=== PATIENT | male | born 1980 | race Caucasian/White ===

== ENCOUNTER 2019-11-28 12:18 | Emergency (ER) | payer OTHER, SELFPAY ==
--- NOTE | 2019-11-28 12:37 | XR_ITS ---
EXAMINATION: XR KNEE, RIGHT XR ANKLE, LEFT XR FOOT, LEFT CLINICAL INFORMATION: Status post fall. COMPARISON: None TECHNIQUE: Four views right knee. Two views left ankle. Three views left foot. FINDINGS: RIGHT KNEE: There is maintained tricompartment joint space. No periarticular spurring, loose bodies, or joint effusion seen. No bony erosive changes. Incidental finding of expansile lesion proximal tibia involving the cortex and the marrow. The soft tissues are unremarkable. LEFT ANKLE: There is mild lateral malleolar soft tissue swelling. No visible acute fracture, dislocation, or lytic process seen. The ankle mortise and subtalar joints are normal. LEFT FOOT: There is no visible acute fracture, dislocation, or subluxation in the left foot. The ankle mortise and subtalar joints are normal. The soft tissues are normal. XR/XR knee RT 4V IMPRESSION: 1. Minimal lateral malleolar soft tissue swelling. No visible acute fracture, dislocation left ankle and left foot. 2. Unremarkable right knee exam.
--- NOTE | 2019-11-28 12:37 | XR_ITS ---
EXAMINATION: XR KNEE, RIGHT XR ANKLE, LEFT XR FOOT, LEFT CLINICAL INFORMATION: Status post fall. COMPARISON: None TECHNIQUE: Four views right knee. Two views left ankle. Three views left foot. FINDINGS: RIGHT KNEE: There is maintained tricompartment joint space. No periarticular spurring, loose bodies, or joint effusion seen. No bony erosive changes. Incidental finding of expansile lesion proximal tibia involving the cortex and the marrow. The soft tissues are unremarkable. LEFT ANKLE: There is mild lateral malleolar soft tissue swelling. No visible acute fracture, dislocation, or lytic process seen. The ankle mortise and subtalar joints are normal. LEFT FOOT: There is no visible acute fracture, dislocation, or subluxation in the left foot. The ankle mortise and subtalar joints are normal. The soft tissues are normal. XR/XR ankle LT min 3V IMPRESSION: 1. Minimal lateral malleolar soft tissue swelling. No visible acute fracture, dislocation left ankle and left foot. 2. Unremarkable right knee exam.
--- NOTE | 2019-11-28 12:37 | XR_ITS ---
EXAMINATION: XR KNEE, RIGHT XR ANKLE, LEFT XR FOOT, LEFT CLINICAL INFORMATION: Status post fall. COMPARISON: None TECHNIQUE: Four views right knee. Two views left ankle. Three views left foot. FINDINGS: RIGHT KNEE: There is maintained tricompartment joint space. No periarticular spurring, loose bodies, or joint effusion seen. No bony erosive changes. Incidental finding of expansile lesion proximal tibia involving the cortex and the marrow. The soft tissues are unremarkable. LEFT ANKLE: There is mild lateral malleolar soft tissue swelling. No visible acute fracture, dislocation, or lytic process seen. The ankle mortise and subtalar joints are normal. LEFT FOOT: There is no visible acute fracture, dislocation, or subluxation in the left foot. The ankle mortise and subtalar joints are normal. The soft tissues are normal. XR/XR foot LT min 3V IMPRESSION: 1. Minimal lateral malleolar soft tissue swelling. No visible acute fracture, dislocation left ankle and left foot. 2. Unremarkable right knee exam.
[2019-11-28 12:49] VITALS: BP 120/62; PULSE 89; RESP 17; TEMP 36.7; O2SAT 99; BMI 21.6
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
[2019-11-28] MEDS: oxyCODONE HCl Immed Release 5 MG TABLET PO (14:52)
[2019-11-28 15:05] VITALS: BP 125/87; PULSE 65; RESP 16; TEMP 36.7; O2SAT 100
== END 2019-11-28 16:35 | disposition home or self-care (01) ==
PROVIDERS: Emergency Provider Emergency Medicine
DX: S80.01XA Contusion of right knee, initial encounter (principal); S80.211A Abrasion, right knee, initial encounter; M25.561 Pain in right knee; V19.9XXA Pedal cyclist (driver) (passenger) injured in unspecified traffic accident, initial encounter; Y93.55 Activity, bike riding; Y92.410 Unspecified street and highway as the place of occurrence of the external cause; Z23 Encounter for immunization
CPT/HCPCS: 73564; 73610; 73630; 90471; 90715; 99284

== ENCOUNTER 2022-11-10 10:27 | Outpatient (REF) | payer MEDICAID, SELFPAY ==
[2022-11-10 12:21] LABS: Alanine Aminotransferase 62 U/L (0-40); Albumin Level 3.7 g/dL (3.5-5.0); Alkaline Phosphatase 91 U/L (39-117); Aspartate Amino Transferase 46 U/L (5-37); Bilirubin Direct 0.1 mg/dL (0.0-0.5); Bilirubin Total 0.5 mg/dL (0.0-1.0); Total Protein 8.5 g/dL (6.5-8.0)
[2022-11-11 10:42] LABS: Syphilis Screen Nonreactive (Nonreactive)
[2022-11-11 10:49] LABS: HBS Num1 3.53 mIU/mL (0-7.99); HBc Num1 0.37 S/CO (0.00-0.79); HIV AB/AG Nonreactive (Nonreactive); HIV Num 1 0.06 S/CO (0.00-0.99); Hepatitis B Core Antibody Nonreactive (Nonreactive); ~HepC Num1 16.57 S/CO (0.00-0.79); ~Hepatitis B Surface Antibody NONREACTIVE (Nonreactive); ~Hepatitis C Antibody Reactive (Nonreactive)
[2022-11-12 12:03] LABS: Hepatitis B Viral DNA Qn - cp NOT DETECTED Log IU/mL (NOT DETECTED); Hepatitis B Viral DNA Qn-IU/mL NOT DETECTED (NOT DETECTED)
== END 2022-11-10 10:28 | disposition home or self-care (01) ==
LOC: HO.HHCL 10:27
PROVIDERS: Visit Provider Family Medicine
DX: Z11.4 Encounter for screening for human immunodeficiency virus [HIV] (principal); F11.20 Opioid dependence, uncomplicated
CPT/HCPCS: 36415; 80076; 86704; 86706; 86780; 86803; 87389; 87517; 87522

== ENCOUNTER 2024-11-29 12:46 | Emergency (ER) | payer SELFPAY ==
[2024-11-29] VITALS (8 sets, daily range): BP systolic 121–166; BP diastolic 65–96; PULSE 57–75; RESP 15–18; TEMP 36.3–36.4; O2SAT 98–99; BMI 23.3
--- NOTE | ~2024-11-29 | CT_ITS ---
EXAMINATION: CT ANGIOGRAM HEAD AND NECK CLINICAL INFORMATION: Subarachnoid hemorrhage, evaluate for aneurysm. COMPARISON: None available. TECHNIQUE: Test bolus sequences and head and neck intravenous bolus administration 70 mL of Omnipaque 350. Helical imaging was performed in the axial plane from the aortic arch to the skull vertex. The data was processed at the public health technologist's workstation for generation of MIP sequences. Angled MIPs and volume rendered reformatted images were also generated at an offline 3D workstation. Stenoses are assessed in accordance with NASCET criteria unless otherwise indicated. This CT examination was performed using dose optimization techniques as appropriate, variously including the following: *Automated exposure control *Adjustment of mA and/or kV according to patient size (this includes techniques or standardized protocols for targeted exams where dose is matched to indication/reason for exam; i.e. extremities or head) *Use of iterative reconstruction technique FINDINGS: NECK CTA: -AORTIC ARCH: Normal in caliber. No significant atheromatous disease. Three-vessel branching pattern. -GREAT VESSEL ORIGINS: Widely patent. No stenosis. -RIGHT COMMON CAROTID ARTERY: Normal in course and caliber to the level of the bifurcation. -CERVICAL RIGHT INTERNAL CAROTID ARTERY: Normal opacification without focal stenosis or occlusion. -LEFT COMMON CAROTID ARTERY: Normal in course and caliber to the level of the bifurcation. -CERVICAL LEFT INTERNAL CAROTID ARTERY: Normal opacification without focal stenosis or occlusion. -CERVICAL RIGHT VERTEBRAL ARTERY: Nondominant. Normal in origin, course and caliber into the skull base. -CERVICAL LEFT VERTEBRAL ARTERY: Dominant. Normal in origin, course and caliber into the skull base. OTHER, SOFT TISSUES: -No lymphadenopathy or mass. No abnormal fluid collection or soft tissue swelling. -Left thyroid lobe is absent. The right thyroid and isthmus appear normal. -Imaged superior mediastinal structures normal. -Imaged lung apices demonstrate centrilobular and paraseptal emphysema. There are otherwise grossly clear. -There are mild to moderate degenerative changes throughout the cervical spine. No suspicious bone lesions. CTA OF THE BRAIN: -INTRACRANIAL INTERNAL CAROTID ARTERIES: The left is normal in course and caliber without evidence of aneurysm. 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 -RIGHT ANTERIOR CEREBRAL ARTERY: Normal A1 segment. Normal arborization of the distal segments. -LEFT ANTERIOR CEREBRAL ARTERY: Normal A1 segment. Normal arborization of the distal segments. -ANTERIOR COMMUNICATING ARTERY: Normal. -RIGHT MIDDLE CEREBRAL ARTERY: Normal M1 segment of the MCA without focal stenosis or occlusion. Arising laterally and slightly anteriorly from the bifurcation, there is a 7 x 3 x 3 mm saccular aneurysm (series 6, image 311; series 12, image 103; series 8, image 95). Normal arborization of the distal segments. -LEFT MIDDLE CEREBRAL ARTERY: Normal M1 segment of the MCA without focal stenosis or occlusion. No aneurysm. Normal arborization of the distal segments. -RIGHT VERTEBRAL ARTERY V4: Normal in course and caliber. There is an AICA/PICA. -LEFT VERTEBRAL ARTERY V4: Normal in course and caliber. There is a normal PICA branch. -BASILAR ARTERY: Normal without focal stenosis or occlusion. Normal appearance of the proximal superior cerebellar arteries. Normal basilar tip. -RIGHT POSTERIOR CEREBRAL ARTERY: Normal P1 segment. Normal opacification of the distal BILINGUAL PATIENT SUPPORT CASEWORKER segments. -LEFT POSTERIOR CEREBRAL ARTERY: Normal P1 segment. Normal opacification of the distal BILINGUAL PATIENT SUPPORT CASEWORKER segments. -POSTERIOR COMMUNICATING ARTERIES: Normal opacification of the superior sagittal, straight, transverse, and sigmoid sinuses. No venous thrombosis. Diffuse subarachnoid hemorrhage again noted. CT/CT angio head neck IMPRESSION: CTA NECK: 1. No evidence of significant stenosis, occlusion, aneurysm, or dissection of the major cervical arterial vasculature. 2. Paraseptal and centrilobular emphysema in the imaged lung apices. CTA HEAD: 1. 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 This is likely the source of the subarachnoid hemorrhage. 2. There is a 2 x 2 millimeter saccular aneurysm arising inferomedially from the ophthalmic segment of the right ICA. 3. There is no additional aneurysm or AVM identified. 4. Diffuse subarachnoid hemorrhage again noted. This is better demonstrated on the noncontrast head CT performed immediately prior to this exam. Electronically signed by: Emil Do MD 11/29/2024 02:28 PM EDT
--- NOTE | ~2024-11-29 | CT_ITS ---
EXAMINATION: CT HEAD WITHOUT IV CONTRAST HISTORY: severe headache. TECHNIQUE: Unenhanced helical CT of the head was performed per standard departmental protocol. Coronal and sagittal reformats of the head were also evaluated. One or more of the following techniques was used for dose reduction: Automated exposure control, adjustment of the mA and/or kV according to patient size, use of iterative reconstruction technique. DLP: 623 mGy-cm COMPARISON: There are no prior studies available for comparison. FINDINGS: BRAIN: There is diffuse subarachnoid hemorrhage bilaterally, although greater on the right. Brown/white differentiation is normal. There is prominence of the temporal horns of the lateral ventricles. There is no significant midline shift.. SINUSES: The visualized paranasal sinuses are clear. The mastoid air cells and middle ear cavities are well pneumatized. ORBITS: There is disconjugate gaze. The globes are intact. BONES/SOFT TISSUES: The extracranial soft tissues are unremarkable. The calvarium is intact. No suspicious lytic or sclerotic lesions. CT/CT head/brain wo IV con IMPRESSION: Diffuse subarachnoid hemorrhage, greater on the right. Prominence of the temporal horns of the lateral ventricles. Findings were discussed with Dr. Alvarez in the emergency room on 11/29/2024 at 1:57 PM. Electronically signed by: Kenji Caceres MD 11/29/2024 02:03 PM EDT
[2024-11-29] MEDS: iohexoL 350 MG/ML 100 ML INFUS..BTL IV (13:57)
--- NOTE | 2024-11-29 13:57 | ED.HA ---
HPI - Headache General Chief Complaint: Headache Stated Complaint: NAUSEA, HAJI Time Seen by Provider: 11/29/24 13:28 Source: patient, family, EMS, old records reviewed and translator interpreter Mode of arrival: ambulatory Limitations: no limitations History of Present Illness ED Provider: KATELYNN HOLLOWAY Narrative: 44 yo male wtih PMH of substance abuse hx of IVDA - not on any medications at home, not on blood thinners - mom also here giving history. He was outside talking to friends when he started with a severe headache R side of head, felt nauseated. He has been tired ever since. He notes this started at 11am and mom reports this is true. He did not fall. He denies hx of headache or aneurysms and there is no family hx of aneurysms. He denies any other symptoms. On arrival he was hard to get a history and I was unable to talk to him and his mom it required interpeter. He notes his legs are both tingling. EMS stated that he needed chair to get him out. Unable to walk. MD elicited complaint: headache Onset (ago): hour(s) (11am today) Onset description: suddenly Location: right Quality & Timing: progressively worsening Exacerbating factors: exertion and movement of head/neck Relieving factors: nothing Context: occurred at rest (while talking) Associated symptoms: nausea Related Data Previous Rx's ?Medication ?Instructions ?Recorded doxycycline monohydrate 100 mg 100 mg PO BID 7 days #14 caps 11/28/19 capsule ibuprofen 800 mg tablet 800 mg PO Q8H PRN pain #30 tabs 11/28/19 oxycodone 5 mg tablet 5 mg PO Q8H PRN pain #7 tabs 11/28/19 Allergies Allergy/AdvReac Type Severity Reaction Status Date / Time No Known Allergies Allergy Verified 11/29/24 12:57 Review of Systems Review of Systems: Constitutional : No Fever, No Chills, No Fatigue ENT/Mouth : No sore throat, No Rhinorrhea Eyes: No Eye Pain, No Swelling, No Redness Cardiovascular : No Chest Pain, No SOB, No Dyspnea on Exertion Respiratory : No Cough, No Sputum Gastrointestinal : pos Nausea, No Vomiting, No Diarrhea, No abdominal Pain Genitourinary : No Dysuria, No Urinary Frequency, No Hematuria, Musculoskeletal : No joint pain, No Myalgias, No Joint Swelling Skin : No Skin Lesions, No rash Neuro : No Weakness, No Numbness, No Dizziness, positive Headache All other systems reviewed and are negative [facility] Past Medical History Attestation statement: The following information was validated with the patient. Source: old records reviewed Medical History (Updated 11/29/24 @ 14:46 by Tegan Alvarez DO) Polysubstance abuse No known health problems Social History Social History (System 01/04/23 @ 14:11 by Alyssia Romeo) Smoked in Last 30 Days: Yes Use of substances other than those prescribed or required for medical reasons: Yes Advance Directives: No Advance Directives Information Provided: Yes Do you have a plan to hurt others: No Plan Physical Exam Vital Signs: Vital Signs: Last Vital Signs Temp 97.6 F 11/29/24 13:03 Pulse 70 11/29/24 14:33 Resp 15 11/29/24 14:33 BP 121/65 11/29/24 14:33 Pulse Ox 98 11/29/24 14:33 O2 Del Method Room Air 11/29/24 14:33 BMI result Body Mass Index 23.3 Appearance: Sleepy but easily woken with verbal and tactile stimuli. Oriented X3. Mild acute distress. Eyes: Pupils equal, round and reactive to light. 3mm ENT: Pharynx normal. atraumatic Neck: Normal inspection. Neck supple. CVS: Normal heart rate and rhythm. Pulses normal. Respiratory: No respiratory distress. Breath sounds normal. Abdomen: Soft and nontender. Skin: Skin warm and dry. Normal skin color. He has old varying picked scars on his UE Extremities: No lower extremity edema. Neuro: Oriented X 3. No motor deficit. No sensory deficit. he follows commands opens eyes to voice and has normal verbal response his GCS is 14 NIH Stroke Scale Internal: Initial- Upon Arrival Level of Consciousness: Not Alert; but arousable by minor stimulation Level of Consciousness Questions: Answers both questions correctly Level of Consciousness Commands: Performs both tasks correctly Best Gaze: Normal Visual: No visual loss Facial Palsy: Normal Motor Arm (Right): No drift Motor Arm (Left): No drift Motor Leg (Right): No drift Motor Leg (Left): No drift Limb Ataxia: Absent Sensory: Normal Best Language: No aphasia Dysarthia: Normal Extinction and Inattention: No abnormality Score: 1 Course Course Course Narrative: [place] [facility] [place] 150[place] after seeing CT scan mom aware and notified of concerns. accepted to [facility] at 203pm give hypertonic if GCS drops 2 points, nicardipine below 140 systolic, will call with bed. Dr. Paredes Medications Administered Generic Name Dose Route Start Last Admin Trade Name Freq PRN Reason Stop Dose Admin Nicardipine HCl 25 mg/ Sodium 250 mls @ 0 mls/hr 11/29/24 14:00 11/29/24 14:01 Chloride IVCONT 5 mg/hr .Q0M AMRIT 50 mls/hr Protocol Administration Per Protocol Discontinued Medications Generic Name Dose Route Start Last Admin Trade Name Freq PRN Reason Stop Dose Admin Iohexol 100 ml 11/29/24 13:57 11/29/24 13:57 Iohexol 350 Mg/Ml 100 Ml Infus..Btl IV 11/29/24 13:58 70 ml ONCE ONE Administration Ondansetron HCl 4 mg 11/29/24 13:41 11/29/24 14:01 Ondansetron Hcl 4 Mg/2 Ml Vial IM 11/29/24 13:42 4 mg ONCE ONE Administration Medical Decision Making Medical Decision Making MDM Narrative: 44 yo male with PMH of substance abuse they deny aspirin or thinners who was with his friends and had R sided abrupt non traumatic headache. They deny history of this and no known hx of aneursms. He is GCS 14, at this time when I saw him mom was uncleared what happened and with translator interpreter she noted hx of drug use but his pupils were not pinpoint he was sent to CT scan then and SAH was seen - CTA done. RN aware nicardipine ordered with BP parameters under 140. He will get labs, INR. Mom is aware of plan to transfer. Differential Diagnosis Differential Diagnoses: The differential diagnosis associated with the presentation includes SAH, mass, ICH, substance abuse possible Admission/Observation Consideration of admission/observation: Escalation of care including admission/observation considered transfer to tertiary center for neuro ICU Consult Healthcare Provider Management of the patient was discussed with: [employer] (Dr. Paredes) Lab Data [facility] Lab Attestation statement: I reviewed the patient's lab results. 11/29/24 14:19 11/29/24 14:17 Labs: Lab Results 11/29/24 11/29/24 Range/Units 14:16 14:19 WBC 10.5 (4.8-10.8) X10*3/uL RBC 3.59 L (4.60-5.80) X10*6/uL Hgb 11.2 L (14.0-18.0) g/dl Hct 33.6 L (42.0-52.0) % MCV 93.6 (80.0-98.0) fL MCH 31.2 (27.0-33.0) pg MCHC 33.3 (31.0-36.0) g/dl RDW 12.7 (11.0-16.0) % Plt Count 245 (160-400) X10*3/uL MPV 10.4 (9.4-12.4) fL Immature Gran % (Auto) 0.3 (0.0-0.4) % Neut % (Auto) 70.8 (45-73) % Lymph % (Auto) 19.4 L (20-40) % Dodge % (Auto) 8.6 (2-11) % Eos % (Auto) 0.5 (0-4) % Baso % (Auto) 0.4 (0-2) % Lymph # (Auto) 2.0 (1.2-4.9) X10*3/uL Dodge # (Auto) 0.9 (0.1-1.2) X10*3/uL Eos # (Auto) 0.1 (0.0-0.4) X10*3/uL Baso # (Auto) 0.0 (0.0-0.2) X10*3/uL Abs Immat Gran (auto) 0.03 (0.00-0.03) X10*3/uL Absolute Neuts (auto) 7.5 (2.0-8.3) x10*3/uL Absolute Nucleated RBC 0.000 (0.0-0.012) X10*3/uL Nucleated RBC % (auto) 0.0 (0.0-0.2) /100WBC PT 13.3 H (10.9-12.4) SEC INR 1.2 H (0.9-1.1) Ethyl Alcohol < 10 mg/dL Independent Interpretation I performed an independent interpretation of an: CT Scan Interpretation: non CON CT HEAD BRAIN: There is diffuse subarachnoid hemorrhage bilaterally, although greater on the right. Brown/white differentiation is normal. There is prominence of the temporal horns of the lateral ventricles. There is no significant midline shift.. SINUSES: The visualized paranasal sinuses are clear. The mastoid air cells and middle ear cavities are well pneumatized. ORBITS: There is disconjugate gaze. The globes are intact. BONES/SOFT TISSUES: The extracranial soft tissues are unremarkable. The calvarium is intact. No suspicious lytic or sclerotic lesions. CT/CT head/brain wo IV con IMPRESSION: Diffuse subarachnoid hemorrhage, greater on the right. Prominence of the temporal horns of the lateral ventricles. Findings were discussed with Dr. Alvarez in the emergency room on 11/29/2024 at 1:57 PM CTA: FINDINGS: NECK CTA: -AORTIC ARCH: Normal in caliber. No significant atheromatous disease. Three-vessel branching pattern. -GREAT VESSEL ORIGINS: Widely patent. No stenosis. -RIGHT COMMON CAROTID ARTERY: Normal in course and caliber to the level of the bifurcation. -CERVICAL RIGHT INTERNAL CAROTID ARTERY: Normal opacification without focal stenosis or occlusion. -LEFT COMMON CAROTID ARTERY: Normal in course and caliber to the level of the bifurcation. -CERVICAL LEFT INTERNAL CAROTID ARTERY: Normal opacification without focal stenosis or occlusion. -CERVICAL RIGHT VERTEBRAL ARTERY: Nondominant. Normal in origin, course and caliber into the skull base. -CERVICAL LEFT VERTEBRAL ARTERY: Dominant. Normal in origin, course and caliber into the skull base. OTHER, SOFT TISSUES: -No lymphadenopathy or mass. No abnormal fluid collection or soft tissue swelling. -Left thyroid lobe is absent. The right thyroid and isthmus appear normal. -Imaged superior mediastinal structures normal. -Imaged lung apices demonstrate centrilobular and paraseptal emphysema. There are otherwise grossly clear. -There are mild to moderate degenerative changes throughout the cervical spine. No suspicious bone lesions. CTA OF THE BRAIN: -INTRACRANIAL INTERNAL CAROTID ARTERIES: The left is normal in course and caliber without evidence of aneurysm. 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 -RIGHT ANTERIOR CEREBRAL ARTERY: Normal A1 segment. Normal arborization of the distal segments. -LEFT ANTERIOR CEREBRAL ARTERY: Normal A1 segment. Normal arborization of the distal segments. -ANTERIOR COMMUNICATING ARTERY: Normal. -RIGHT MIDDLE CEREBRAL ARTERY: Normal M1 segment of the MCA without focal stenosis or occlusion. Arising laterally and slightly anteriorly from the bifurcation, there is a 7 x 3 x 3 mm saccular aneurysm (series 6, image 311; series 12, image 103; series 8, image 95). Normal arborization of the distal segments. -LEFT MIDDLE CEREBRAL ARTERY: Normal M1 segment of the MCA without focal stenosis or occlusion. No aneurysm. Normal arborization of the distal segments. -RIGHT VERTEBRAL ARTERY V4: Normal in course and caliber. There is an AICA/PICA. -LEFT VERTEBRAL ARTERY V4: Normal in course and caliber. There is a normal PICA branch. -BASILAR ARTERY: Normal without focal stenosis or occlusion. Normal appearance of the proximal superior cerebellar arteries. Normal basilar tip. -RIGHT POSTERIOR CEREBRAL ARTERY: Normal P1 segment. Normal opacification of the distal FUR REPAIRER segments. -LEFT POSTERIOR CEREBRAL ARTERY: Normal P1 segment. Normal opacification of the distal FUR REPAIRER segments. -POSTERIOR COMMUNICATING ARTERIES: Normal opacification of the superior sagittal, straight, transverse, and sigmoid sinuses. No venous thrombosis. Diffuse subarachnoid hemorrhage again noted. CT/CT angio head neck IMPRESSION: CTA NECK: 1. No evidence of significant stenosis, occlusion, aneurysm, or dissection of the major cervical arterial vasculature. 2. Paraseptal and centrilobular emphysema in the imaged lung apices. CTA HEAD: 1. 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 This is likely the source of the subarachnoid hemorrhage. 2. There is a 2 x 2 millimeter saccular aneurysm arising inferomedially from the ophthalmic segment of the right ICA. 3. There is no additional aneurysm or AVM identified. 4. Diffuse subarachnoid hemorrhage again noted. This is better demonstrated on the noncontrast head CT performed immediately prior to this exam. Electronically signed by: Emil Do MD 11/29/2024 02:28 PM EDT Radiology Impression Discussion of test interpretation with radiology: I discussed test interpretation with the radiologist and I have reviewed the radiologist's reading. Critical Care Time Critical Care Time Critical Care Time: Yes Total Critical Care Time: 45 Attestation: Time is exclusive of separately billable procedures. Time includes: direct patient care, patient reassessment, coordination of patient care, interpretation of data (laboratory data, pulse oximetry, CT scans), review of patient's medical records, medical consultation and documentation of patient care. Procedures excluded from critical care time: central intravenous line placement and electrocardiography. I attest to this time spent taking care of the patient Discharge Plan Discharge Clinical Impression: Subarachnoid hemorrhage, Aneurysm Patient Disposition: [facility] Transfer Details: [facility] Prescriptions: No Action ibuprofen 800 mg tablet 800 mg PO Q8H PRN (Reason: pain) Qty: 30 0RF doxycycline monohydrate 100 mg capsule 100 mg PO BID 7 Days Qty: 14 0RF oxycodone 5 mg tablet 5 mg PO Q8H PRN (Reason: pain) Qty: 7 0RF Print Language: Tajik
[2024-11-29 14:23] LABS: MANUAL DIFF FLAG NO
[2024-11-29 14:24] LABS: Hematocrit 33.6 % (42.0-52.0); Hemoglobin 11.2 g/dl (14.0-18.0); Imm Gran Abs Auto 0.03 X10*3/uL (0.00-0.03); Imm Gran Pct Auto 0.3 % (0.0-0.4); Lymphocytes Absolute Auto 2.0 X10*3/uL (1.2-4.9); Mean Corpuscular HGB Conc 33.3 g/dl (31.0-36.0); Mean Corpuscular Hemoglobin 31.2 pg (27.0-33.0); Mean Corpuscular Volume 93.6 fL (80.0-98.0); NRBC Abs Auto 0.000 X10*3/uL (0.0-0.012); NRBC Pct Auto 0.0 /100WBC (0.0-0.2); Platelet Count 245 X10*3/uL (160-400); Red Blood Count 3.59 X10*6/uL (4.60-5.80); White Blood Count 10.5 X10*3/uL (4.8-10.8)
[2024-11-29 14:33] LABS: INTERNATIONAL NORM RATIO 1.2 (0.9-1.1); Prothrombin Time 13.3 SEC (10.9-12.4)
--- NOTE | 2024-11-29 14:56 | PC.NURSE ---
Pt comes to ED today with c/o severe headache with sudden onset at approx. 1100. He c/o nausea and light sensitivity. No medications. (+) HX IVDU per mother. CT shows subarachnoid hemorrhage, greater on the R side. BP elevated Pt started on Nicardipine drip @ 5mg/hr. BP assessed Q15 minutes--no titrations required d/t BP readings. Transfer to [facility] for critical care. Spoke with MANDO Medrano for RN to RN. Marcela given opportunity for questions and all questions answered to satisfaction. [facility] arrives for transport of Pt. RN report given to [facility]. Care of Pt relinquished to [facility]. Pt leave ED unit with Nicardipine running at 5mg/hr.
[2024-11-29 15:11] LABS: Alanine Aminotransferase 63 U/L (0-40); Albumin Level 4.1 g/dL (3.5-5.0); Alkaline Phosphatase 85 U/L (39-117); Anion Gap 13 (12-20); Aspartate Amino Transferase 57 U/L (5-37); Blood Urea Nitrogen 31 mg/dL (9-16); Calcium 9.2 mg/dL (8.4-10.2); Carbon Dioxide 25 mmol/L (22-29); Chloride 100 mmol/L (96-108); Creatinine Clr Calc Pharmacy 73.2; Estimated Glomerular Filt Rate > 60; Magnesium 1.8 mg/dL (1.6-2.6); Potassium 3.8 mmol/L (3.3-5.1); Sodium 134 mmol/L (135-145); Total Protein 9.2 g/dL (6.5-8.0)
--- OUTSIDE RECORDS SUMMARY | 2024-11-29 15:26 | XMS_ITS | Encounter Summary ---
Author Organization [employer] Address [address] [place] [address] Care Team Providers Care Document Design Specialist Name Role Phone Unavailable Primary Care Provider Unavailabl e Encounter Details Date Type Department Care Team (Late st Contact Info) Description 11/17/2022 Orders Only [facility] [address] [place] [address] Michelle Piña MD [address] [place] [address] Opioid type dependence, continuous (CMS/HCC) (Primary Dx) Social History Tobacco Use Types Packs/Day Years Used Date Smoking Tobacco: Never Assessed Sex and Gender Information Value Date Recorded Sex Assigned at Male 11/08/2022 10:40 AM EDT Legal Sex Male 10:08 AM EDT Gender Identity Male 11/08/2022 10:40 AM EDT Sexual Orientation Straight 11/08/2022 10 :40 AM EDT documented as of this encounter Plan of Treatment Not on file documented as of this encounter Visit Diagnoses Diagnosis Opioid type dependence, continuous (CMS/HCC) (HCC)- Primary Opioid type dependence, continuous documented in this encounter
--- OUTSIDE RECORDS SUMMARY | 2024-11-29 15:26 | XMS_ITS | Clinical Summary ---
Author Organization [employer] Address [address] [facility] [address] [place] [address] Care Team Providers Care Rink Rat Name Role Phone Unavailable Primary Care Provider Unavailabl e Allergies No known active allergies Medications Buprenorphine HCl-Naloxone HCl (Suboxone) 8-2 MG SL filmIndications: Uncomplicated opioid dependence (CMS/HCC) (HCC) Place 1 Film under the tongue 3 times daily for 7 days. 21 Film 12/28/2022 Active Active Problems Problem Noted Date Diagnosed Date Chronic hepatitis C virus infection (CMS/HCC) Opioid dependence 11/08/2022 Assessment & Plan (01/04/2023 5:52 AM EST): - preparation / action stage (but still sees some ambivalence) - Currently prescribed buprenorphine / naloxone 24/6 mg daily - Discussed about harm reduction. - Overdose risk: High. Risk factors include using alone, IV, and mixed drug usage. Assessment & Plan (11/23/2022 12:19 PM EDT): - preparation / action stage (but still sees some ambivalence) - Increase to 20/5 mg daily this week, then 24/6 mg daily next week - Discussed about harm reduction. - Overdose risk: High. Risk factors include using alone, IV, and mixed drug usage. Assessment & Plan (11/09/2022 3:00 PM EDT): - action stage (but still sees some ambivalence) - His goal is not to have withdrawal - He has never used Suboxone before - Scheduled for induction tomorrow. Will give 2 mg film. He can start 2-4 mg every 2-4 hours, up to 16 mg total per day. Will try 16 mg (TWO 8 mg film) daily. Maintain at 16-24 mg daily. If he develops precipitated withdrawal with 2 mg, he can try 0.5 mg-1mg later when he has appropriate COWS. - Discussed about harm reduction. Our pharmacy will dispense syringes, 25 cent per needle. Will recommend Tapestry - Overdose risk: Average to high. Risk factors include using alone, IV, and mixed drug usage. - Given a lab order - Pt declined medications for withdrawal symptoms. Immunizations Immunization Administration Dates Next Due Hep B, adult 10/04/2018,08/30/2018 Pneumococcal Polysaccharide PPSV23 10/04/2018 Tdap 11/28/2019,08/24/2018,08/10/2006 Social History Tobacco Use Types Packs/Day Years Used Date Smoking Tobacco: Never Assessed Sex and Gender Information Value Date Recorded Sex Assigned at Male 11/08/2022 10:40 AM EDT Legal Sex Male 10:08 AM EDT Gender Identity Male 11/08/2022 10:40 AM EDT Sexual Orientation Straight 11/08/2022 10 :40 AM EDT Plan of Treatment Health Maintenance Due Date Last Done Comments Depression Screening 1980 Lipid Panel 1980 SDOH Screening 1980 Disability Screening 1980 Alcohol/Substance Use Screening 1992 Tobacco Screening 1992 Family Planning (PISQ) 11/27/1995 HPV Vaccines (1 - Male 3-dos e series) 11/27/1995 Hepatitis A Vaccines (1 of 2 - Risk 2-dose series) 11/27/1999 Hepatitis B Vaccines (3 of 3 - 19+ 3-dose series) 03/02/2019 10/04/2018, 08/30/2018 Pneumococcal Vaccine: Pediatrics (0 to 5 Years) and At-Risk Patients (6 to 49) Years (2 of 2 - PCV) 10/05/2019 10/04/2018 COVID-19 Vaccine (2 - 2024-2 6 season) 2024 06/19/2020 Influenza Vaccine (#1) 2024 DTaP/Tdap/Td Vaccines (4 - T d or Tdap) 11/27/2029 11/28/2019, 08/24/2018, 08/10/2006 Zoster Vaccines (1 of 2) 2030 RSV Patients and Patients Aged 60 years or older (1 - 1-dose 75+ series) 11/27/2055 HIV Screening Completed 11/10/2022 HIB Vaccines Aged Out No longer eligi ble based on patient's age to complete this topic IPV Vaccines Aged Out No longer eligi ble based on patient's age to complete this topic Meningococcal B Vaccine Aged Out No l onger eligible based on patient's age to complete this topic Meningococcal Vaccine Aged Out No alicia sheila eligible based on patient's age to complete this topic RSV under 20 months Aged Out No longe r eligible based on patient's age to complete this topic Rotavirus Vaccines Aged Out No longer eligible based on patient's age to complete this topic Procedures Procedure Name Priority Date/Time Associated Diagnosis Comments HIV ANTIBODY/ANTIGEN ([facility]) Routine 11/10/2022 10:33 AM EDT from Last 3 Months or Most Recently Relevant to Health Maintenance Results * HIV Ab/Ag ([place] [facility]) (11/10/2022 10:33 AM EDT) Pathologist [facility] [place] HIV AB/AG Nonreactive Nonreactive [facility] Comment:HIV-1 p24 Ag and/or HIV-1/HIV-2 Ab not detected.A test result that is nonreactive does not exclude thepossibility of exposure to or infection with HIV-1 and/orHIV-2. Nonreactive results in this assay for individualswith prior exposure to HIV-1 and/or HIV-2 may be due toantigen and antibody levels that are below the limit ofdetection of this assay.The [facility] HIV Ag/Ab Combo assay result andsupplemental assay results should be interpreted inconjunction with the patient's clinical presentation,history and other laboratory results. If the results areinconsistent with clinical evidence, additional testing issuggested to confirm the result. 11/10/2022 10:3 3 AM EDT 11/10/2022 11:27 AM EDT us Michelle Piña MD LAB BLOOD ORDERABLES Final Resul t [facility] [address] [place] [address] [phone] from Last 3 Months or Most Recently Relevant to Health Maintenance Insurance [employer] C3
== END 2024-11-29 14:55 | disposition short-term general hospital (02) ==
PROVIDERS: Emergency Provider Emergency Medicine
DX: I60.9 Nontraumatic subarachnoid hemorrhage, unspecified (principal); R51.9 Headache, unspecified; R11.0 Nausea; R20.2 Paresthesia of skin; I72.9 Aneurysm of unspecified site; F19.10 Other psychoactive substance abuse, uncomplicated; Z79.899 Other long term (current) drug therapy
CPT/HCPCS: 36415; 70450; 70496; 70498; 80048; 80076; 80307; 83735; 85025; 85610; 96365; 96372; 99285; J2404; J2405; Q9967

== ENCOUNTER → 2024-11-29 13:41 | Outpatient (BNV) | payer OTHER, MEDICAID, SELFPAY | PROVIDERS: Emergency Provider Emergency Medicine; Visit Provider Radiology Diagnostic Radiology | DX: I60.11 Nontraumatic subarachnoid hemorrhage from right middle cerebral artery (principal); I67.1 Cerebral aneurysm, nonruptured; R51.9 Headache, unspecified | CPT/HCPCS: 70450; 70496; 70498 ==